=== PATIENT | female | born 1950 | race Caucasian/White ===

== ENCOUNTER 2023-07-20 12:09 | Emergency (ER) | payer MEDICARE, OTHER, SELFPAY ==
[2023-07-20 12:12] VITALS: BP 177/95
--- NOTE | 2023-07-20 13:51 | ED.GENMED ---
History of Present Illness
General
Chief Complaint: Head Injury
Time Seen by Provider: 07/20/23 12:55
Travel History
Have you had any contact with someone who has COVID-19?: No
Do you have any symptoms of coronavirus? Fever > 100 degrees, chills, cough, shortness of breath, sore throat, loss of taste or smell, muscle aches, or headache?: No
History of Present Illness
History of Present Illness:
73-year-old female presents to the emergency department for evaluation of a mechanical ground-level fall. She is a history of Lewy body dementia and she fell out of her commode chair while using the restroom. Struck her head on the ground, there
is a laceration above the right eyebrow. No reported loss of consciousness, the fall was witnessed by the . Not on anticoagulants
Past History
Past History
ED Past Medical History: CVA and Other (Parkinson's disease dementia versus dementia with Lewy bodies)
ED Past Surgical History: Other (Cyst removal and melanoma excision)
Social History
Tobacco: Non-smoker
Alcohol: None
Drug: None
Personal:
Living: with family
Family History
Family History: Other (reviewed and noncontributory)
Review of Systems
Review of Systems
Allergies reviewed?: Yes
All Other Systems: ROS reviewed and negative except as documented in HPI and ROS
Phy Exam
Physical Exam
Physical Exam:
GEN: Well appearing, NAD, WDWN
HEENT: Oral mucosa moist, no scleral icterus. 3cm V shaped laceration to R forehead adjacent to the eyebrow
Cardiac: Regular rate
Lung: No respiratory distress, no tachypnea
MSK: No gross deformity or injuries
Skin: Good color, no pallor or jaundice, no rashes
Neuro: AO x3, moves all extremities freely
Psych: Calm, cooperative
Course
Orders/Labs/Results
Orders:
Orders
07/20/23 12:11
CT Head W/o Iv Contrast Urgent
Comment:
Reason For Exam: fall, dementia
Vital Signs
Initial and Last Documented VS:
Initial Vital Signs
Temp Pulse Resp BP Pulse Ox
98.0 F 65 17 177/95 95
07/20/23 12:12 07/20/23 12:12 07/20/23 12:12 07/20/23 12:12 07/20/23 12:12
Last Documented Vital Signs
Temp Pulse Resp BP Pulse Ox
98.0 F 63 17 159/99 100
07/20/23 12:12 07/20/23 14:00 07/20/23 12:12 07/20/23 14:00 07/20/23 14:00
Procedures
Laceration Closure
Right Forehead:
Status of Wound: clean
Size of Wound in cm: 3
Description of Wound Edges: flap-well vascularized
Preparation: cleaned with soap & water
Anesthesia: 1% Lidocaine with epi
Type of Closure: single layer closure
Skin Closure Material: 5-0 prolene
Number of sutures: 5
MDM/Problems Addressed
MDM/Problems Addressed:
CTH negative. Bedside suture closure w/o difficulty. Discussed wound care and return precautions
*Critical Care Note
Total Time (30-74mins, 75-104mins- exclusive of procedures): Not Applicable
ED Attending Note
-
Portions of this chart may have been created with voice recognition software.� Occasional wrong word or��sound alike� substitutions may have occurred due to the inherent limitations of voice recognition software.
Discharge Plan
Departure
Patient Disposition: Home (Routine Discharge)
Date of Disposition: 07/20/23
Time of Disposition: 13:51
Patient with high blood pressure during this ER visit?: No
Discharge Problem:
Ground-level fall, Forehead laceration
Instructions: Laceration Repair With Stitches (DC)
Prescriptions:
No Action
multivitamin [One Daily] 1 EACH tablet
1 ea PO DAILY
Patient Comments:
pt uses gummy multivitamin
latanoprost 1 DROP drops
1 drp BOTH EYES HS
memantine 10 MG tablet
10 mg PO BID
carbidopa-levodopa 1 TABLET tablet
1 tab PO TID 0RF
Activity Restrictions/Additional Instructions:
Keep the wound covered and dry for the next 24 hours
After 24 hours rinse gently with regular soap and water, do not scrub the wound
Keep covered each day until suture movable which should be between 7 to 10 days from now
Interventions
Interventions:
*Risk Screen - Suicide Last Done: 07/20/23 13:45
*General Assessment Last Done: 07/20/23 13:45
*Neglect/Abuse Screening Last Done: 07/20/23 13:45
ED- Fall Risk Assessment Last Done: 07/20/23 13:45
*ED COVID-19 Vaccine History Last Done: 07/20/23 13:45
*Nursing Disposition Last Done: 07/20/23 14:09
ED- Neurological Assessment Last Done: 07/20/23 13:45
ED-Skin Assessment Last Done: 07/20/23 13:45
Discharge Date and Time
Discharge Date/Time: 07/20/23 14:09
Print Language: TANZANIAN
[2023-07-20 14:00] VITALS: BP 159/99
== END 2023-07-20 14:09 | disposition home or self-care (01) ==
LOC: EMR 12:09
PROVIDERS: EMERGENCY PHYSICIAN Emergency Medicine; FAMILY PHYSICIAN Family Medicine
DX: S01.81XA Laceration without foreign body of other part of head, initial encounter (principal); W18.30XA Fall on same level, unspecified, initial encounter; F02.80 Dementia in other diseases classified elsewhere, unspecified severity, without behavioral disturbance, psychotic disturbance, mood disturbance, and anxiety; G31.83 Neurocognitive disorder with Lewy bodies; Z85.820 Personal history of malignant melanoma of skin; Z86.73 Personal history of transient ischemic attack (TIA), and cerebral infarction without residual deficits
CPT/HCPCS: 99284; 12013; 70450